=== PATIENT | female | born 1975 | race Caucasian/White ===

== ENCOUNTER → 2017-08-25 | Outpatient (CLI) | payer BC, OTHER ==
--- NOTE | 2017-08-25 17:45 | US ---
EXAM DESCRIPTION: Abdomen,Complete CLINICAL HISTORY: R10.11 right upper quadrant pain COMPARISON: None Available. TECHNIQUE: Complete abdominal ultrasound FINDINGS: Visualized portions of the pancreas are unremarkable. No peripancreatic fluid. Bowel gas obscures some areas. Normal caliber of the aorta. Normal appearance of the inferior vena cava. Liver parenchyma is homogeneous in texture with normal echogenicity. No liver mass or intrahepatic bile duct dilatation. No liver surface irregularity. Normal appearance of hepatic veins and portal vein. Gallbladder appears normal with no intraluminal stones. No gallbladder wall thickening. Common bile duct is normal in caliber measuring 4.0 mm. The right kidney measures 10.7 cm in length. Mildly increased renal cortical echogenicity. Correlate with renal function tests. The renal cortical thickness appears normal. No right renal mass, shadowing stone or cyst. There is no hydronephrosis. Spleen is normal in size. No focal splenic lesion. The left kidney measures 10 cm in length. Mildly increased renal cortical echogenicity. Correlate with renal function tests. The renal cortical thickness appears normal. No left renal mass, shadowing stone or cyst. There is no hydronephrosis. IMPRESSION: Borderline increased echogenicity of the renal cortex bilaterally. Correlate with renal function studies. Otherwise unremarkable upper abdomen sonogram. Electronically signed by: Chapo Morgan MD 08/25/2017 5:43 PM CDT
--- NOTE | 2017-08-25 21:58 | CT ---
EXAM DESCRIPTION: Chest w/Contrast : Computed Tomography. CLINICAL HISTORY: R07.2. Precordial pain. COMPARISON: 2 view chest 11/21/2015. Ultrasound abdomen on the same visit. TECHNIQUE: Spiral-axial scans at 5.0 mm intervals through the lungs and thorax with IV contrast. 2.5 mm lung algorithm axial reconstructions. Coronal and axial 2.0 Mm reconstructions. No adverse reactions. Total Exam DLP: 479.48 mGy-cm. This exam was performed according to our departmental dose-optimization program which includes automated exposure control, adjustment of the mA and/or kV according to patient size and/or use of iterative reconstruction technique; to reduce radiation dose to as low as reasonably achievable (ALARA). FINDINGS: No suspicious nodules bilaterally. Lungs are well-inflated. No infiltrates. No pleural effusion or pneumothorax. Thyroid gland enhances well. No soft tissue masses or enlarged lymph nodes in the base of the neck mediastinum or hilar regions bilaterally. No unusual enhancement of the great vessels are brachiocephalic vessels. Included subcutaneous diaphragmatic peritoneal space shows no free fluid. Normal size density and enhancement of the spleen and bilateral adrenal glands. Gallbladder and common bile duct are partially visualized as well as the pancreas. Small amount of ridging on some of the anterior thoracic disc spaces. Other osseous structures are unremarkable. No mass in the anterior chest wall. IMPRESSION: Lungs are well-inflated with no definite lesions. Soft tissues of the mediastinum hilum chest wall and base of the neck are unremarkable. Electronically signed by: Canelo Vizcarra MD 08/25/2017 9:56 PM CDT
== END ==
LOC: LAB.O 08:03
PROVIDERS: ATTEND Family Medicine
DX: R07.2 Precordial pain (principal); R07.89 Other chest pain; R10.11 Right upper quadrant pain; E11.9 Type 2 diabetes mellitus without complications

== ENCOUNTER → 2018-11-28 | Outpatient (CLI) | payer OTHER, SELFPAY | LOC: LAB.O 08:00 | PROVIDERS: ATTEND Emergency Medicine | DX: E11.9 Type 2 diabetes mellitus without complications (principal); E78.2 Mixed hyperlipidemia ==